=== PATIENT | male | born 1945 | race Caucasian/White ===

== ENCOUNTER → 2020-09-02 15:00 | Outpatient (BNVA) | payer MEDICARE, BC, SELFPAY | PROVIDERS: Family Provider Internal Medicine; PCP Internal Medicine; Visit Provider Specialist | DX: M17.11 Unilateral primary osteoarthritis, right knee (principal); Z96.652 Presence of left artificial knee joint; E66.01 Morbid (severe) obesity due to excess calories; Z68.41 Body mass index [BMI] 40.0-44.9, adult | CPT/HCPCS: 73560; 73565 ==

== ENCOUNTER 2022-02-16 12:22 | Emergency (ER) | payer MEDICARE, BC, SELFPAY ==
[2022-02-16 12:25] VITALS: BP 142/62; PULSE 88; RESP 17; TEMP 36.8; O2SAT 96; BMI 39.4
--- NOTE | 2022-02-16 12:26 | ED_ITS ---
HPI - Back Pain/Injury General: Chief Complaint: Extremity Problem,Nontraumatic Stated Complaint: Cant walk/sciatic pain Time Seen by Provider: 02/16/22 12:25 Source: patient Mode of arrival: ambulatory History of Present Illness: 76-year-old male presented emergency room complaining of back pain. Patient states he had back pain for last 15 years last 6 weeks is gotten worse since he checked himself the detention he was doing physical therapy there he has been using a walker for some time he has had increasing difficulty with using the walker had difficulty with his legs. He states he cannot stand up he has severe pain he did demonstrate the ability to stand and transfer independently. He came in via ambulance he said he really wanted to go to [facility] but was referred here because [facility] ER was full he is requesting to be evaluated for back surgery. He has not had any urinary retention or fecal incontinence. No recent trauma or fall since leaving the detention MD elicited complaint: back pain Pertinent past history: prior back pain Onset (ago): week(s) (6) Timing: constant Severity: moderate Similar Symptoms Previously: Yes Quality: sharp Location: lumbar spine Radiation: right upper leg and right leg below the knee Exacerbating factors: sitting upright and walking Relieving factors: supine Associated symptoms: Reports difficulty walking; Deny abdominal pain, arthralgias, chills, change in bowel habits, dysuria, fatigue, fecal incontinence, fever(s), hematuria, myalgias, nausea, numbness, syncope, tingling/numbness/burning, urinary frequency, urinary urgency, vomiting or weakness Review of Systems Const: Denies: fever(s), chills, fatigue or malaise ENMT: Denies: throat pain, ear or mastoid pain, nasal discharge or nasal congestion Card: Denies: chest pain, palpitations or syncope Resp: Denies: dyspnea, productive cough or non-productive cough GI: Denies: abdominal pain, nausea, vomiting, fecal incontinence or change in bowel habits : Denies: dysuria, urinary urgency or hematuria Musc: Reports: back pain (Chronic) and extremity pain Skin/Breast: Denies: rash or pruritus Neuro: Reports: difficulty walking PFSH ED PFSH: Surgical History (Updated 09/04/20 @ 10:33 by Radha Sanchez MD) History of total knee arthroplasty Left Family History Father CAD (coronary artery disease) Hypertension Mother No problems noted. Brother Diabetes Social History Smoking and tobacco status: former smoker Second hand smoke exposure: No Alcohol intake: current Physical Exam Const: COMMON NORMALS: no acute distress GENERAL APPEARANCE: cooperative and comfortable ORIENTATION/CONSCIOUSNESS: Yes awake, Yes oriented to person, Yes oriented to place and Yes oriented to time HENMT: COMMON NORMALS: normocephalic, atraumatic, hearing grossly normal bilaterally, external ears normal, EAC's normal, TM's normal bilaterally, Normal nasal mucous membranes and turbinates present, moist oral mucous membranes and oropharynx normal HEAD & SCALP: normocephalic and atraumatic NOSE: Normal nasal mucous membranes and turbinates present EXTERNAL EAR: Yes external ears normal EXTERNAL AUDITORY CANAL: EAC's normal TYMPANIC MEMBRANE: TM's sharon l bilaterally Eye: COMMON NORMALS: Equal, round and reactive pupils present, EOMs intact bilaterally, conjunctivae normal and no scleral icterus CONJUNCTIVA: Yes conjunctivae normal PUPIL: Yes Equal, round and reactive pupils present Neck/C-Spine: COMMON NORMALS: full ROM, no lymphadenopathy, supple and no JVD Lymph: LYMPHATIC: no lymphadenopathy noted and no lymphedema noted Resp: COMMON NORMALS: normal respiratory effort, No retractions, No use of accessory muscles and clear to auscultation bilaterally AUSCULTATION: clear to auscultation bilaterally Cardio: COMMON NORMALS: no JVD, regular rate, regular rhythm and No murmurs present (Cardio) RATE: regular rate RHYTHM: regular rhythm GI: COMMON NORMALS: Soft to palpation and No hepatosplenomegaly present AUSCULTATION: Yes normoactive bowel sounds PALPATION: Yes Soft to palpation, No Tenderness to palpation present (GI), No Guarding due to palpation present (GI) and Yes No hepatosplenomegaly present Extremity: COMMON NORMALS: normal to inspection, capillary refill normal, no clubbing, cyanosis or edema, no calf tenderness and no pedal edema OTHER: Straight leg raising negative sensation lower extremities normal patient reports weakness in the right leg but he imparts that due to recent arthroplasty of the right knee. Neuro: SENSORIUM/ORIENTATION: Yes oriented to person, Yes oriented to place and Yes oriented to time Skin: COMMON NORMALS: no rashes or lesions noted GENERAL SKIN EXAM: no rashes or lesions noted Course Vital Signs: Vital signs: Vital Signs Temperature 98.2 F 02/16/22 12:25 Pulse Rate 88 02/16/22 12:25 Respiratory Rate 17 02/16/22 12:25 Blood Pressure 142/62 02/16/22 12:25 Pulse Oximetry 96 02/16/22 12:25 Oxygen Delivery Me thod 02/16/22 12:25 MDM - Back Pain/Injury Medical Decision Making Long discussion with the patient I am happy to set him up for one of the neurosurgeons. We can set him up to see Dr. Aldana if he would prefer or the other option before neglect his primary care doctor the other surgeon who was he seen previously and have them refer him for second opinion. He does not have signs or symptoms of cauda equina at this time. He has progressive worsening back pain with difficulty with walking. He is evidently twice been in the detention and left because he tells me did not feel that physical therapy is helping very much. Time of discharge he did demonstrates ability to transfer independently. He did asked that we make arrangements for him to follow-up with Dr. Aldana for another opinion. Medical Records I reviewed the patient's medical records. Labs I reviewed the patient's lab results. Discharge Plan Discharge Patient Disposition: Home Clinical Impression: Chronic back pain Condition: Stable Prescriptions: No Action metformin 500 mg tablet 500 mg PO DAILY diclofenac potassium 50 mg tablet 50 mg PO BID hydrocodone-acetaminophen [[place]] 10-325 mg tablet 1 tab PO Q6H PRN omeprazole 20 mg capsule,delayed release(DR/EC) 20 mg PO DAILY paroxetine HCl 40 mg tablet 40 mg PO DAILY alprazolam [Xanax] 1 mg tablet 1 mg PO DAILY gabapentin 600 mg tablet 600 mg PO BID aspirin [Sundeep Chewable Aspirin] 81 mg tablet,chewable 81 mg PO DAILY alpha lipoic acid 200 mg capsule 200 mg PO DAILY desloratadine 5 mg tablet 5 mg PO DAILY carvedilol [Coreg] 25 mg tablet 25 mg PO BID Rx Instructions: must administer with a meal/food atorvastatin 40 mg tablet 40 mg PO DAILY Eliquis 5 mg tablet 5 mg PO BID amiodarone 200 mg tablet 200 mg PO DAILY Discharge Orders: Discharge ED (Routine); Ordered 02/16/22 Ordered By: Juancarlos Sharma Referrals: Graham Welsh MD [Primary Care Provider] - Discharge Diet: Usual diet Discharge Activity: Increase activity as tolerated Patient Instructions: Opioid Safety Activity Restrictions/Additional Instructions: Management make arrangements for a consultation with orthopedic spine surgery Coding Level of Care Code ED Director Furniture for [facility] [place]
--- NOTE | 2022-02-17 12:12 | DCPLANNER ---
Addendum entered by Valarie Garsia 03/18/22 09:47: Patient had a follow up appointment for patient with ortho - patient did attend appointment. Addendum entered by Valarie Garsia 02/24/22 08:00: Patient has a follow up appointment scheduled for February at 10:[address] Aldana at ortho. Clinic will call patient with appointment information. Original Note: web production manager had message to schedule a follow up appointment for patient with ortho. web production manager sent patients information to the front office staff at ortho. Patients information will be printed and reviewed. Clinic will call patient with appointment information.
== END 2022-02-16 14:08 | disposition home or self-care (01) ==
PROVIDERS: Emergency Provider Family Medicine; PCP Internal Medicine
DX: G89.29 Other chronic pain (principal); M54.9 Dorsalgia, unspecified; Z79.01 Long term (current) use of anticoagulants; Z79.84 Long term (current) use of oral hypoglycemic drugs; Z79.82 Long term (current) use of aspirin; Z87.891 Personal history of nicotine dependence
CPT/HCPCS: 99283

== ENCOUNTER → 2022-03-17 10:58 | Outpatient (BNVA) | payer MEDICARE, BC, SELFPAY | PROVIDERS: PCP Internal Medicine; Referring Provider Family Medicine; Visit Provider Orthopaedic Surgery | DX: M54.9 Dorsalgia, unspecified (principal); M47.816 Spondylosis without myelopathy or radiculopathy, lumbar region | CPT/HCPCS: 72100; 99203; 99204 ==

== ENCOUNTER → 2022-04-19 14:27 | Outpatient (BNVA) | payer MEDICARE, BC, SELFPAY | PROVIDERS: PCP Internal Medicine; Visit Provider Orthopaedic Surgery | DX: M48.062 Spinal stenosis, lumbar region with neurogenic claudication (principal) | CPT/HCPCS: 99214 ==

== ENCOUNTER 2022-04-26 11:38 | Outpatient (CLI) | payer MEDICARE, BC, SELFPAY | END 2022-04-26 11:39 | disposition home or self-care (01) | LOC: RT 04-27 11:40 | PROVIDERS: PCP Internal Medicine; Visit Provider Orthopaedic Surgery | DX: Z01.89 Encounter for other specified special examinations (principal); Z95.0 Presence of cardiac pacemaker | CPT/HCPCS: 93005 ==

== ENCOUNTER 2022-05-02 05:33 | Day surgery (SDC) | payer MEDICARE, BC, SELFPAY ==
[2022-04-26 08:27] VITALS: BMI 39.7
--- NOTE | 2022-04-26 08:33 | ECG_ITS ---
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 Measurements Intervals [place] Rate: 69 P: 72 PA: 225 QRS: -60 QRSD: 225 T: 118 QT: 506 QTc: 544 Interpretive Statements ELECTRONIC ATRIAL PACEMAKER ELECTRONIC VENTRICULAR PACEMAKER ABNORMAL RHYTHM ECG Compared to ECG 10/13/2017 12:50:18 Sinus rhythm no longer present Left-axis deviation no longer present Right bundle-branch block no longer present Left ventricular hypertrophy no longer present Myocardial infarct finding no longer present Electronically Signed On 04-26-2022 21:05:36 DISBURSING OFFICER by Eleanor Reed M.D. [id number]
[2022-04-26 09:13] LABS: Basophils # 0.1 10^3/uL (0.0-0.1); Basophils % 0.7 %; Eosinophils # 0.3 10^3/uL (0.0-0.8); Eosinophils % 4.3 %; Hematocrit 33.9 % (42.0-52.0); Hemoglobin 9.7 g/dL (11.7-16.6); Lymphocytes # 1.4 10^3/uL (0.8-4.8); Lymphocytes % 20.4 %; Mean Corpuscular HGB Conc 28.6 g/dL (30.0-36.0); Mean Corpuscular Hemoglobin 23.3 pg (28.0-34.0); Mean Corpuscular Volume 81.5 fl (80-94); Monocytes # 0.6 10^3/uL (0.2-0.9); Monocytes % 8.6 %; Neutrophils # 4.53 10^3/uL (1.8-7.7); Neutrophils % 65.7 %; Nucleated Red Blood Cells % 0 %; Platelet Count 180 10^3/cmm (130-400); Red Blood Count 4.16 10^6/uL (4.1-5.3); Red Cell Distribution Width 27.5 % (12.1-15.1); White Blood Count 6.9 10^3/uL (4.0-10.0)
--- NOTE | 2022-04-26 15:33 | ANES.PREANE2 ---
Pre-Anesthetic Assessment Height/Weight: Height 1.8 m Weight 129.274 kg Operation Date: 05/02/22 13:50 Proposed Procedures p Lumbar Spine Decompression L3/4 L4/5 65156/13565/M48.062(Not Applicable) - Chacorta Aldana, Familial anesthetic complications: none Was Beta Yareli taken within 24 hours: Yes Was Clonidine taken within 24 hours: N/A Social No alcohol and No tobacco Exam alert, oriented x 3, clear to auscultation bilaterally and regular rate & rhythm Airway Submandibular: within normal limits Cervical ROM: within normal limits Mallampati: Class II Dentition: chipped Pulmonary Shortness of Breath CV/HEM Coronary Artery Disease (CABG), Myocardial Infarction and Murmur EF 45%, mod MR, pacemaker GI Gastroesophageal Reflux Disease Metabolic Hyperlipidemia and Morbid Obesity Musc/skel Lower Back Pain, Osteoarthritis/DJD and Weakness Anesthetic Plan ASA status: 3 Anesthesia: General Medications/Allergies Home Medications Medication Instructions Recorded Confirmed Last Taken Type alprazolam 1 mg tablet (Xanax) 1 mg PO DAILY 09/02/20 04/26/22 Unknown History apixaban 5 mg tablet (Eliquis) 5 mg PO BID 09/02/20 04/26/22 Unknown History atorvastatin 40 mg tablet 40 mg PO DAILY 09/02/20 04/26/22 Unknown History carvedilol 25 mg tablet (Coreg) 25 mg PO BID 09/02/20 04/26/22 Unknown History gabapentin 600 mg tablet 600 mg PO BID 09/02/20 04/26/22 Unknown History hydrocodone 10 mg-acetaminophen 1 tab PO Q6H PRN Pain 09/02/20 04/26/22 Unknown History 325 mg tablet ([place]) omeprazole 20 mg capsule,delayed 20 mg PO BID 09/02/20 04/26/22 Unknown History release paroxetine HCl 40 mg tablet 40 mg PO DAILY 09/02/20 04/26/22 Unknown History pregabalin 100 mg capsule 100 mg PO BID 04/26/22 04/26/22 Unknown History Allergies Allergy/AdvReac Type Severity Reaction Status Date / Time cedarwood Allergy ADR-Itching Verified 04/26/22 08:17 venom-honey bee Allergy ALGY-Swell Verified 04/26/22 08:17 Lip/Tongue/Throat PFSH Anesthesia Surgical History History of total knee arthroplasty Left Family History Father CAD (coronary artery disease) Hypertension Mother No problems noted. Brother Diabetes Social History Smoking and tobacco status: former smoker Second hand smoke exposure: No Alcohol intake: current Data Anesthesia : 04/26/22 08:49 Short CBC 04/26/22 Range/Units 08:49 WBC 6.9 (4.0-10.0) 10^3/uL Hgb 9.7 L (11.7-16.6) g/dL Hct 33.9 L (42.0-52.0) % MCV 81.5 (80-94) fl Plt Count 180 (130-400) 10^3/cmm Neut % (Auto) 65.7 % Neut # (Auto) 4.53 (1.8-7.7) 10^3/uL Cardiac Studies: No Data to Display
[2022-05-02] VITALS (19 sets, daily range): BP systolic 69–138; BP diastolic 49–86; PULSE 64–72; RESP 12–20; TEMP 36.2–36.6; O2SAT 90–97
--- NOTE | 2022-05-02 | XR_ITS ---
WS: [id number] Exam: XR lumbar spine 1V 10091 Date/Time of Exam: 05/02/2022 12:00 AM Reason For Exam: L3-4, L4-5 decompression There are 2 anterior posterior intraoperative C-arm images of the lower lumbar spine submitted for ev aluation. The images depict a localization device superimposing the region of the L3-4 and L4-5 disc levels.
--- NOTE | 2022-05-02 | SCC_ITS ---
Procedure done: 1. L3/4 laminectomy with partial facetectomy 2. L4/5 laminectomy with partial facetetomy 15 seconds of fluoroscopic guidance, for a cumulative dose of 9.9 mGy, was provided to Dr. Aldana by the radiology department. C-arm images of the lumbar spine were saved for the patient's permanent record. [facility]
--- NOTE | 2022-05-02 06:20 | W.PM.OPSUD ---
Surgery/Procedure H&P Update DATE OF PROCEDURE: May 02, 2022 DATE H&P PERFORMED: 04/19/22 H&P UPDATE INFORMATION: I have reviewed H&P completed within last 30 days, I have examined patient prior to procedure and No changes to prior documentation PREOP DIAGNOSIS: Lumbar stenosis with neurogenic claudication PLANNED PROCEDURE: Operation Date: 05/02/22 07:00 Proposed Procedures p Lumbar Spine Decompression L3/4 L4/5 68518/08634/M48.062(Not Applicable) - Chacorta Aldana DO
[2022-05-02] MEDS: sodium chloride 0.9% 1,000 ML 30 ML IV (06:22)
--- NOTE | 2022-05-02 06:39 | P.ANESUD_ITS ---
Pre-Anesthetic Update Pre-Anesthetic Assessment: Date of Surgery/Procedure: 05/02/22 Preop Subha gnosis: Lumbar stenosis with neurogenic claudication Proposed Procedure: Operation Date: 05/02/22 07:00 Proposed Procedures p Lumbar Spine Decompression L3/4 L4/5 05119/38777/M48.062(Not Applicable) - Chacorta Aldana, DO Any changes to Pre-Anesthetic Assessment?: No Last Intake: Intake Last Liquid Date 05/01/22 Last Liquid Time 17:00 Last Solid Date 05/01/22 Last Solid Time 17:00 Vitals: Temperature 97.2 F L 05/02/22 06:05 Temperature Source Temporal Artery S can 05/02/22 06:05 Pulse Rate 70 05/02/22 06:05 Pulse Rhythm 05/02/22 06:05 Pulse Strength 2+ Slightly Dimin ished 05/02/22 06:05 Respiratory Rate 18 05/02/22 06:05 Blood Pressure 113/66 05/02/22 06:05 Blood Pressure Elaine n 81 05/02/22 06:05 Pulse Oximetry 95 05/02/22 06:05 Oxygen Delivery Me thod 05/02/22 06:05 Exam: Pre-Anes Outpt Exam: alert, oriented x 3, clear to auscultation bilaterally and regular rate & rhythm Cardiac Studies: No Data to Display
--- NOTE | 2022-05-02 08:35 | SUR.PHASEI ---
0813 PT TO PACU 5 PT SLEEPY WITH ORAL AIRWAY IN PLACE, VSS GOOD RESP EFFORT NOTED IV TO LT JOVANNY #20 WITH 1000ML NS AT KVO RATE PER GRAVITY, ID BANDS TO RT WRIST, PT ID'D WITH 2 IDENTIFIERS SILVALON DRESSING TO LOWER BACK D/I BILAT SCDS ON AND WORKING 824 PT AWAKES AND ORAL AIRWAY OUT , PT NIKOLSKI VERBALLY DENIES PAIN, PT LOG ROLLED TO RT SIDE WITH ASSIST OF 2 , DRESSING TO LOWER BACK D/I PT SLEEPY BUT COUGHS TO COMMAND AND MOVES BILAT FEET STRONGLY AND EQUALLY
--- NOTE | 2022-05-02 08:44 | SUR.PHASEI ---
PT REMAINS 100% PACED, PT PLACED ON 3LNC TO KEEP SATS OVER 94% PT COUGHS UP LARGE AMT CLEAR THICK STRINGY SECRETIONS.
--- NOTE | 2022-05-02 08:46 | P.OP_ITS ---
Operative Report Date of procedure: May 02, 2022 Pre-op diagnosis: Preop Diagnosis Lumbar stenosis with neurogenic claudication Post-op diagnosis: same Procedure done: 1. L3/4 laminectomy with partial facetectomy 2. L4/5 laminectomy with partial facetetomy Surgeon: Chacorta Aldana Intelligence Intern: Jayjay Sharpe Intelligence Intern: The certified surgical first assistant, Jayjay Sharpe, PAC was needed for his expertise under the microscope. He was important and necessary throughout the procedure to complete in a safe and timely manner. He assisted with patient positioning prepping and draping tissue retraction suctioning of the operative field protection of the dural sac and tissue closure Estimated blood loss (mL): 5 Procedure: 1. L3/4 laminectomy with partial facetectomy 2. L4/5 laminectomy with partial facetetomy Patient is brought to the operative suite. After undergoing anesthesia they are placed in the prone position. All areas of impingement are well padded. Patient is then prepped and draped in the normal sterile fashion. A skin incision is made over the L3/4 level. This is confirmed under c-arm guidance. A series of dilators are passed and the tubular retractor is docked on the L3 lamina. A bovie is used to clear the soft tissue off the lamina and the L 3/4 facet joint. A high speed kingsley is then used to perform the laminectomy and take down the medial aspect of the L 3/4 facet joint. A kerrison rongeure was then used to take down the remaining lamina and smooth the edge of the laminectomy up to the point where the ligamentum flavum attaches. Attention was then brought to the medial aspect of the facet joint. The remaining medial aspect of the superior and inferior aspect of the facet joint were taken down with the kerrison from the pedicle of L3 to L 4. The facet joint had significant hypertrophy. Attention was then brought to the Ligamentum Flavum. The ligament was taken down from the lamina of L3 to L4 and out medially to the remaining facet joint. The ligament was thick. The dura was then exposed. The dura was in good repair. The L3 nerve was then traced with a curette out the L3/4 foramen and found to be adequately decompressed. The L4 nerve was traced with a curette around the L4 pedicle. The lateral recess was opened with a kerrison helping to further decompress the L4 nerve. Wound is then irrigated copiously with saline and surgiflo is used to stop any bleeding. The tubular retractor is removed and the A skin incision is made over the L4/5 level. This is confirmed under c-arm guidance. A series of dilators are passed and the tubular retractor is docked on the L4 lamina. A bovie is used to clear the soft tissue off the lamina and the L 4/5 facet joint. A high speed kingsley is then used to perform the laminectomy and take down the medial aspect of the L 4/5 facet joint. A kerrison rongeure was then used to take down the remaining lamina and smooth the edge of the laminectomy up to the point where the ligamentum flavum attaches. Attention was then brought to the medial aspect of the facet joint. The remaining medial aspect of the superior and inferior aspect of the facet joint were taken down with the kerrison from the pedicle of L4 to L 5. The facet joint had significant hypertrophy. Attention was then brought to the Ligamentum Flavum. The ligament was taken down from the lamina of L4 to L5 and out medially to the remaining facet joint. The ligament was thick. The dura was then exposed. The dura was in good repair. The L4 nerve was then traced with a curette out the L4/5 foramen and found to be adequately decompressed. The L5 nerve was traced with a curette around the L5 pedicle. The lateral recess was opened with a kerrison helping to further decompress the L5 nerve. Wound is then irrigated copiously with saline and surgiflo is used to stop any bleeding. The tubular retractor is removed and the wound is closed with vicryl and monocryl suture. Glue is then used to protect the wound. A sterile dressing is then placed. Patient was then placed in the supine position and transferred to the PACU in stable condition.
[2022-05-02] MEDS: HYDROcodone-acetaminophen 10-325 mg Tablet 1 TAB PO (10:05)
--- NOTE | 2022-05-02 13:21 | ANE.PACU2 ---
Inpatient post-anesthesia follow up: Airway intact: Yes Vital signs: Temperature 97.8 F Pulse Rate 68 Respiratory Rate 18 Blood Pressure 131/60 Pulse Oximetry 92 Oxygen Delivery Me thod Room Air Oxygen Flow Rate 2 Fraction of Inspir ed Oxygen Hydration adequate: Yes Nausea and vomiting: No Pain level: 1 Mental status: Baseline
== END 2022-05-02 10:50 | disposition home or self-care (01) ==
PROVIDERS: Anesthesiology; PCP Internal Medicine; Visit Provider Orthopaedic Surgery
PROC: (CPT 63005; principal; 2022-05-02 07:00)
DX: M48.062 Spinal stenosis, lumbar region with neurogenic claudication (principal); I25.10 Atherosclerotic heart disease of native coronary artery without angina pectoris; Z95.1 Presence of aortocoronary bypass graft; I25.2 Old myocardial infarction; Z95.0 Presence of cardiac pacemaker; K21.9 Gastro-esophageal reflux disease without esophagitis; E78.5 Hyperlipidemia, unspecified; E66.01 Morbid (severe) obesity due to excess calories; Z68.39 Body mass index [BMI] 39.0-39.9, adult; Z87.891 Personal history of nicotine dependence
CPT/HCPCS: 63047; 63048; 36415; 72020; 76000; 85025; J0330; J1100; J2250; J2370; J2405; J2704; J2710; J3010; J3490; J7030

== ENCOUNTER → 2022-05-17 13:36 | Outpatient (BNVA) | payer MEDICARE, BC, SELFPAY | PROVIDERS: PCP Internal Medicine; Visit Provider Orthopaedic Surgery | DX: Z47.89 Encounter for other orthopedic aftercare (principal) | CPT/HCPCS: 99024 ==

== ENCOUNTER → 2022-06-14 12:18 | Outpatient (BNVA) | payer MEDICARE, BC, SELFPAY | PROVIDERS: PCP Internal Medicine; Visit Provider Orthopaedic Surgery | DX: Z47.89 Encounter for other orthopedic aftercare (principal) | CPT/HCPCS: 99024; 99213 ==

== ENCOUNTER → 2022-08-04 13:12 | Outpatient (BNVA) | payer MEDICARE, BC, SELFPAY | PROVIDERS: PCP Internal Medicine; Visit Provider Orthopaedic Surgery | DX: Z47.89 Encounter for other orthopedic aftercare (principal) | CPT/HCPCS: 99024 ==

== ENCOUNTER → 2022-08-24 13:56 | Outpatient (BNVA) | payer MEDICARE, BC, SELFPAY | PROVIDERS: PCP Internal Medicine; Visit Provider Specialist | DX: T84.84XA Pain due to internal orthopedic prosthetic devices, implants and grafts, initial encounter (principal); Y79.2 Prosthetic and other implants, materials and accessory orthopedic devices associated with adverse incidents; Z96.653 Presence of artificial knee joint, bilateral; M17.11 Unilateral primary osteoarthritis, right knee | CPT/HCPCS: 73560; 73565; 80503; 87070; 87075; 87205; 89050; 99215 ==

== ENCOUNTER 2022-09-16 09:39 | Outpatient (CLI) | payer MEDICARE, BC, SELFPAY ==
--- NOTE | 2022-09-16 10:15 | US_ITS ---
WS: [id number] ULTRASOUND SOFT TISSUES RIGHT suprapatellar knee. HISTORY: quad separation COMPARISON: None available. TECHNIQUE: 2-D and color Doppler imaging is submitted. Ultrasound is directed along the anterior RIGHT suprapatellar knee. Irregular soft tissue tract which is probably from prior surgery. The soft tissue tract extends to the distal quadriceps tendon. The q uadriceps tendon is heterogeneous and very thinned distally. Its attachment to the patella is not shasha ged. No fluid-filled gaps are identified. US/US soft tissue/extremity [id number] IMPRESSION: 1. Thinning and heterogeneity within the distal quadriceps tendon. The entire tendon is not visualized to the patella. Inadequate demonstration of the distal quadriceps tendon and relationship to the patella. 2. There is no surrounding fluid pocket or edema. No fluid-filled defect withi n the tendon. 3. This is a very limited demonstration of the quadriceps tendon. Depending on the physician's concern suggest repeating this examination with radiologist marquise butterfield. Additional imaging can be performed at no additional charge.
== END 2022-09-16 09:40 | disposition home or self-care (01) ==
LOC: RAD 09:43
PROVIDERS: PCP Internal Medicine; Visit Provider Specialist
DX: M25.561 Pain in right knee (principal)
CPT/HCPCS: 76882

== ENCOUNTER → 2022-10-03 13:40 | Outpatient (BNVA) | payer MEDICARE, BC, SELFPAY | PROVIDERS: PCP Internal Medicine; Visit Provider Specialist | DX: S76.111D Strain of right quadriceps muscle, fascia and tendon, subsequent encounter (principal); X58.XXXD Exposure to other specified factors, subsequent encounter; M25.561 Pain in right knee; G89.29 Other chronic pain; Z96.651 Presence of right artificial knee joint | CPT/HCPCS: 99214 ==

== ENCOUNTER → 2022-11-07 15:02 | Outpatient (BNVA) | payer MEDICARE, BC, SELFPAY | PROVIDERS: PCP Internal Medicine; Visit Provider Specialist | DX: M25.561 Pain in right knee (principal); G89.29 Other chronic pain; Z96.651 Presence of right artificial knee joint | CPT/HCPCS: 99213 ==